=== PATIENT | female | born 1960 | race Caucasian/White ===

== ENCOUNTER → 2016-05-23 | Day surgery (SDC) | payer BC ==
[~2016-05-23] VITALS: Ht 162.6 cm; Wt 80.0 kg
[~2016-05-23] MED LIST: CLOBETASOL EMOL15 GM TOP; HUMIRA 4040 MG/0.8 SUB-Q; MELATONIN5 M2 PO; PROTONIX40 MG PO
== END | disposition disaster alternative care site (69) ==
LOC: GPOC 05-20 12:00 → GEND 09:17 → GPOC 13:00
PROC: 0DB68ZX Excision of Stomach, Via Natural or Artificial Opening Endoscopic, Diagnostic (ICD-10-PCS; principal; 2016-05-23)
DX: K31.7 Polyp of stomach and duodenum (principal); Z90.710 Acquired absence of both cervix and uterus; Z98.890 Other specified postprocedural states; Z79.899 Other long term (current) drug therapy
CPT/HCPCS: J2001; J7030